=== PATIENT | female | born 1960 ===

== ENCOUNTER 2016-12-24 12:53 | Inpatient (IN) | payer OTHER ==
[2016-12-24] MEDS ORDERED: Sodium Chloride 0.9% 500 ML IV ONE ×2 (14:18→14:31)
[2016-12-24 14:38] LABS: BASO # 0.1 K/uL (0.0-0.2); BASO % 0.6 % (0.0-2.0); EOS % 0.2 % (0.0-4.0); HEMATOCRIT 18.6 % (34.0-47.0); LYMPH # 1.4 K/uL (1.0-4.3); LYMPH % 12.1 % (20.0-40.0); MEAN CELL VOLUME 83.8 fL (81.0-99.0); MEAN CORPUSCULAR HEMOGLOBIN 27.3 pg (27.0-31.0); MEAN CORPUSCULAR HGB CONC 32.5 g/dL (33.0-37.0); MEAN PLATELET VOLUME 8.1 fL (7.2-11.7); MONO # 1.2 K/uL (0.0-0.8); MONO % 10.2 % (0.0-10.0); NRBC % 0.1 % (0.0-2.0); RED CELL DISTRIBUTION WIDTH 14.6 % (11.5-14.5); WHITE BLOOD COUNT 11.3 K/uL (4.8-10.8)
--- NOTE | 2016-12-24 14:45 | C.PDOC ---
History Of Present Illness 56 y/o female, whose PMHx includes anemia, HTN, hyperlipidemia, presents to ED for evaluation of generalized weakness, and dizziness for the last 2 weeks. Pt complaints of dark black stool over the last 2 days. Notes occasional back pain. Otherwise, denies any nausea, vomiting, abdominal pain, urinary symptoms, incontinence, extremity weakness/numbness, chest pain, shortness of breath, fever, chills, or any other associated symptoms at this time. PMD: Dr. Wood Time Seen by Provider: 12/24/16 13:51 Chief Complaint (Nursing): GI Problem History Per: Patient History/Exam Limitations: no limitations Onset/Duration Of Symptoms: Days (2 weeks) Current Symptoms Are (Timing): Still Present Number Of Bleeding Episodes: Unknown Amount of Blood Loss: Small Quality Of Discomfort: "Pain" Associated Symptoms: Rectal Bleeding, Lightheadedness. denies: Nausea, Vomiting , Hematemesis Modifying Factors: None Recent travel outside of the [place]: No Additional History Per: Patient Past Medical History Reviewed: Historical Data, Nursing Documentation, Vital Signs Vital Signs: Last Vital Signs Temp 98.2 F 12/24/16 13:12 Pulse 98 H 12/24/16 13:12 Resp 18 12/24/16 13:12 BP 109/72 12/24/16 13:12 Pulse Ox 100 12/24/16 14:57 - Medical History PMH: Anemia, HTN, Hyperlipidemia Family History: States: No Known Family Hx - Social History Hx Alcohol Use: No Hx Substance Use: No - Immunization History Hx Tetanus Toxoid Vaccination: No Hx Influenza Vaccination: No Hx Pneumococcal Vaccination: No Review Of Systems Except As Marked, All Systems Reviewed And Found Negative. Constitutional: Negative for: Fever, Chills Cardiovascular: Negative for: Chest Pain, Palpitations, Edema Respiratory: Negative for: Cough, Shortness of Breath, Hemoptysis Gastrointestinal: Positive for: Melena (dark black stool), Hematochezia. Negative for: Nausea, Vomiting, Abdominal Pain, Diarrhea, Constipation, Hematemesis Genitourinary: Negative for: Dysuria, Frequency, Incontinence, Hematuria, Vaginal Discharge, Vaginal Bleeding Musculoskeletal: Positive for: Back Pain. Negative for: Neck Pain Skin: Negative for: Rash, Bruising Neurological: Positive for: Dizziness. Negative for: Weakness, Numbness, Headache Physical Exam - Physical Exam Appears: Non-toxic, No Acute Distress Skin: Normal Color, Warm, Dry, No Rash Head: Atraumatic, Normacephalic Eye(s): bilateral: PERRL, EOMI, Conjunctiva Pale Oral Mucosa: Moist Neck: Normal ROM, Supple Chest: Symmetrical Cardiovascular: Rhythm Regular, No Murmur Respiratory: No Accessory Muscle Use, No Rales, No Rhonchi, No Wheezing Gastrointestinal/Abdominal: Soft, No Tenderness Rectal: No Heme Negative (no gross blood), No Hemorrhoids, No Tenderness, Other (black stool, no fissures) Back: No CVA Tenderness, No Vertebral Tenderness, No Paraspinal Tenderness Extremity: Normal ROM, Pedal Edema (b/l), No Deformity Neurological/Psych: Oriented x3, Normal Speech, Normal Cognition ED Course And Treatment - Laboratory Results Result Diagrams: 12/24/16 14:30 12/24/16 14:30 ECG: Interpreted By Me, Viewed By Me ECG Rhythm: Sinus Rhythm ECG Interpretation: No Acute Changes Interpretation Of ECG: No ST/T wave elevation or depression. Rate From EC (bpm) O2 Sat by Pulse Oximetry: 100 (on RA) Pulse Ox Interpretation: Normal Medical Decision Making Medical Decision Making: Blood work, UA, EKG, CXR ordered and reviewed. Pt was given IV fluids. Disposition Discussed With Dr.: Eun Kothari Doctor Will See Patient In The: Hospital Counseled Patient/Family Regarding: Studies Performed, Diagnosis - Disposition Disposition Time: 15:01 Condition: GUARDED Forms: [facility] ([place]) - Clinical Impression Clinical Impression: Anemia, GI bleed - Scribe Statement The provider has reviewed the documentation as recorded by the Cici López All medical record entries made by the Feleciaibshashi were at my direction and personally dictated by me. I have reviewed the chart and agree that the record accurately reflects my personal performance of the history, physical exam, medical decision making, and the department course for this patient. I have also personally directed, reviewed, and agree with the discharge instructions and disposition. Decision To Admit - Pt Status Changed To: Hospital Disposition Of: Inpatient - Admit Certification Admit to Inpatient:: After my assessment, the patient will require hospitalization for at least two midnights. This is because of the severity of symptoms shown, intensity of services needed, and/or the medical risk in this patient being treated as an outpatient. - InPatient: Physician Admission Certification: I certify that this patient requires 2 or more midnights of care for the following reason:: GI bleed - . Bed Request Type: Telemetry Patient Diagnosis: Anemia, GI bleed
[2016-12-24 14:49] LABS: ALB/GLOB RATIO 1.3 (1.0-2.1); ALKALINE PHOSPHATASE 70 U/L (38-126); ALT/SGPT 36 U/L (9-52); AST/SGOT 41 U/L (14-36); BILIRUBIN,TOTAL 0.8 mg/dL (0.2-1.3); BLOOD UREA NITROGEN 15 mg/dL (7-17); CALCIUM 8.8 mg/dl (8.6-10.4); CARBON DIOXIDE 25 mmol/L (22-30); CHLORIDE 94 mmol/L (98-107); GFR AFRICAN-AMERICAN > 60; GLUCOSE,RANDOM 90 mg/dL (65-105); POTASSIUM 3.5 mmol/L (3.6-5.2); SODIUM 134 mmol/L (132-148); TOTAL PROTEIN 6.9 g/dL (6.3-8.3)
--- NOTE | 2016-12-24 15:33 | RAD ---
PROCEDURE: CHEST RADIOGRAPH, 1 VIEW HISTORY: GI Bleeding COMPARISON: None available. FINDINGS: LUNGS: Mild venous congestion. Patchy increased markings at both lung bases. Right hilar prominence. PLEURA: No pneumothorax or pleural fluid seen. CARDIOVASCULAR: Normal. OSSEOUS STRUCTURES: No significant abnormalities. VISUALIZED UPPER ABDOMEN: Normal. OTHER FINDINGS: Surgical clips in the right axilla. IMPRESSION: Mild venous congestion. Patchy increased markings at both lung bases. Right hilar prominence.
--- NOTE | 2016-12-24 16:13 | CP.PCM.CON ---
<Ej Mtz - Last Filed: 12/24/16 17:03> History of Present Illness - History of Present Illness History of Present Illness: PGY5 GI Fellow Consult Note Patient is a 56yo female with PMHx significant for breast cancer dx 15 years ago s/p lumpectomy, chemotherapy and XRT with subsequent oral SERM for 5 years and anemia who presented to the ED today with dizziness, fatigue and generalized malaise. Patient had complained of fatigue and was seen by her PCP in October of this year. Routine blood work at the beginning of October (10/14/16) revealed a normocytic anemia (HGB 12.5 with MCV 91) and repeat blood work at the end of October revealed worsening anemia (HGB 11.1 with MCV 90.6). With these findings, patient was started on PO iron supplementation. Two weeks ago she suddenly developed dizziness and has had progressive dyspnea and fatigue since. Symptoms became so severe that she has been unable to go to work for the past two days and decided to come to the ED for further evaluation. Initial lab work here reveals HGB of 6. Patient admits to mild intermittent LUQ abdominal pain and has had dark, formed stool since initiation of iron supplementation and thus did not suspect any rectal bleeding. Denies any corry bright red blood per rectum. She has not had any nausea, vomiting, weight loss, dysphagia, odynophagia. She has no family history of GI malignancy and has not had any prior endoscopic evaluations. PMHx: See HPI PSHx: Lumpectomy for breast cancer FHx: Discussed with patient and she denies any pertinent family history Social: Denies any tobacco, EtOH or illicit drug use Endo: No prior endoscopic evaluations Review of Systems - Constitutional Constitutional: Fatigue, Malaise. absent: Anorexia, Fever - EENT Eyes: absent: Change in Vision Nose/Mouth/Throat: absent: Sore Throat - Cardiovascular Cardiovascular: Dyspnea, Dyspnea on Exertion. absent: Chest Pain - Respiratory Respiratory: Dyspnea. absent: Cough, Excessive Mucous Production - Gastrointestinal Gastrointestinal: Abdominal Pain. absent: Bloating, Constipation, Cramping, Diarrhea, Dyspepsia, Dysphagia, Heartburn, Hematemesis, Hematochezia, Loose Stools, Melena, Nausea, Odynophagia, Vomiting - Genitourinary Genitourinary: absent: Dysuria, Urinary Frequency, Urinary Urgency - Musculoskeletal Musculoskeletal: absent: Back Pain, Neck Pain - Integumentary Integumentary: absent: New Lesions, Rash - Neurological Neurological: absent: Dizziness, Numbness, Focal Weakness - Psychiatric Psychiatric: absent: Anxiety, Depression - Endocrine Endocrine: absent: Polydipsia, Polyphagia, Polyuria - Hematologic/Lymphatic Hematologic: absent: Easy Bleeding, Easy Bruising, Lymphadenopathy Past Patient History - Past Social History Smoking Status: Never Smoked - CARDIAC Hx Hypertension: Yes - HEMATOLOGICAL/ONCOLOGICAL Hx Anemia: Yes - PSYCHIATRIC Hx Substance Use: No - SURGICAL HISTORY Other/Comment: Rt breast cyst removal - ANESTHESIA Hx Anesthesia: Yes Hx Anesthesia Reactions: No Meds Allergies/Adverse Reactions: Allergies Allergy/AdvReac Type Severity Reaction Status Date / Time No Known Allergies Allergy Verified 12/24/16 13:16 Physical Exam - Constitutional Appears: Non-toxic, No Acute Distress - Eye Exam Eye Exam: EOMI, PERRL - ENT Exam ENT Exam: Mucous Membranes Moist - Respiratory Exam Respiratory Exam: Clear to Auscultation Bilateral. absent: Rales, Rhonchi, Wheezes - Cardiovascular Exam Cardiovascular Exam: RRR, +S1, +S2 - GI/Abdominal Exam GI & Abdominal Exam: Normal Bowel Sounds, Soft. absent: Distended, Firm, Guarding, Organomegaly, Rigid, Tenderness - Rectal Exam Rectal Exam: absent: Black Stool, Bloody Stool, Hemorrhoids Additional comments: dark brown, formed stool in rectum; no bright red blood, no melena - Extremities Exam Extremities exam: Positive for: normal inspection. Negative for: pedal edema - Neurological Exam Neurological exam: Alert, Oriented x3 - Psychiatric Exam Psychiatric exam: Normal Affect, Normal Mood - Skin Skin Exam: Dry, Warm Results - Vital Signs Recent Vital Signs: Last Vital Signs Temp 98.2 F 12/24/16 13:12 Pulse 98 H 12/24/16 13:12 Resp 18 12/24/16 13:12 BP 109/72 12/24/16 13:12 Pulse Ox 100 12/24/16 15:02 - Labs Result Diagrams: 12/24/16 14:30 12/24/16 14:30 Assessment & Plan - Assessment and Plan (Free Text) Assessment: Patient is a 56yo female with PMHx significant for breast cancer dx 15 years ago s/p lumpectomy, chemotherapy and XRT with subsequent oral SERM for 5 years and anemia who presented to the ED today with dizziness, fatigue and generalized malaise. -Symptomatic normocytic anemia -Hypokalemia -H/O Breast cancer Plan: -HGB down 6g from 12.5 on 10/15/15 to today -Recommend PRBC transfusion as ordered by ER staff -Suspect anemia is more chronic in nature; no overt signs of acute GI hemorrhaging -Protonix 40mg PO QAMAC -Aggressive IVF resuscitation as is ordered -Liquid diet as tolerated -NPO past MN -If patient is adequately resuscitated, plan for EGD tomorrow -Patient will ultimately benefit from colonoscopy given her age and history of malignancy, however would defer this examination for now and will likely recommend as outpatient -Monitor CBC, BMP; check INR, TSH - Date & Time Date: 12/24/16 Time: 16:15 <Rich Lowry - Last Filed: 12/24/16 17:26> Meds - Medications Medications: Current Medications Pantoprazole Sodium (Protonix Ec Tab) 40 mg PO ACB ADRIEL Results - Vital Signs Recent Vital Signs: Last Vital Signs Temp 99.9 F H 12/24/16 17:19 Pulse 102 H 12/24/16 16:24 Resp 15 12/24/16 16:24 BP 115/64 12/24/16 16:24 Pulse Ox 93 L 12/24/16 16:24 - Labs Result Diagrams: 12/24/16 14:30 12/24/16 14:30 Labs: Laboratory Results - last 24 hr 12/24/16 15:10 Blood Type B POSITIVE Blood Type Confirm B POSITIVE Antibody Screen Negative Attending/Attestation - Attestation I have personally seen and examined this patient.: Yes I have fully participated in the care of the patient.: Yes I have reviewed all pertinent clinical information: Yes Notes (Text): 12/24/16 17:20 I have seen and examined patient with GI fellow. Agree with above documentation with the following additions. In brief, this is a 56 year old female with history of breast cancer s/p chemo and radiation therapy who presents to hospital with complaint of progressive fatigue and dizziness for the past two days. She has been following up as outpatient for the past few months for iron deficiency anemia, however recently she started developing symptoms mentioned above and came to hospital. She endorses extreme fatigue even with ambulation with short distance and mild LUQ non-radiating abdominal pain. She denies associated nausea, vomiting, diarrhea, fever/chills, weight loss, or change in bowel habits. She does report having maroon colored stool since beginning oral iron supplementation therapy. No prior endoscopic evaluation. Review of vitals from today shows tachycardia. History of breast cancer Symptomatic anemia Blood in stool - Clear liquid diet as tolerated - Transfuse 2 units PRBC and continue to monitor H/H - Begin oral PPI therapy - Obtain iron studies, TSH - Outpatient bloodwork from October reviewed by me showing Hb of 12, therefore significant change currently noted. Given clinical scenario, will plan for EGD evaluation to rule out peptic ulcer disease or underlying malignancy. She would also benefit from colonoscopy, however this can likely be performed electively as outpatient. NPO after midnight. Case discussed with Dr. Mccarthy.
--- NOTE | 2016-12-24 17:54 | CP.PCM.HP ---
History of Present Illness - History of Present Illness History of Present Illness: CC: Dizziness, blood in stool HPI: Ms Olson is a 56 yo F with pmhx of HTN, HLD and breast cancer in 2001, presenting to [facility] ED with the complaint of dizziness and blood in her stool. Patient states that the dizziness started about a week ago and is worse with walking and exertion. Patient states that she started having "dark" blood in her stool 2 days ago. Prior to this patient had dark stool because she was taking Ferritin, but this was a change to a dark red color in her stool. Patient also states that she had generalized abdominal discomfort last night but no pain. Patient admits fatigue with exertion, generalized weakness, blurry vision, increased urinary urgency, and easy bruising. Patient denies weight change, fever, chills, skin/hair/nail changes, headache, epistaxis, bleeding gums, chest pain, palpitations, wheeze, cough, hemoptysis, indigestion, dysphagia, nausea, vomiting, diarrhea, constipation, dysuria, or hematuria. As per Dr. Wood patient has had Hemoglobin of 11.3-12.5 in the past PMD: Dr. Wood PMH: HTN, HLD and breast cancer in 2001 SurgicalHX: Right breast cancer in 2001 - surgically removed along with radiation and chemotherapy. 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 No tobacco use. EtOH - Glass of wine approx. once a month. No illicit drug use. Home Medications: Losartan 100 mg PO qd, Ferritin 140 mg po qd, Atorvastatin 10 mg PO qd, Pantoprazole 40 mg PO qd Present on Admission - Present on Admission Any Indicators Present on Admission: No History of DVT/PE: No History of Uncontrolled Diabetes: No Urinary Catheter: No Decubitus Ulcer Present: No Review of Systems - Constitutional Constitutional: Fatigue, Lethargy, Weakness. absent: Anorexia, Chills, Weight Loss - EENT Eyes: Blurred Vision. absent: Blind Spots Ears: Dizziness Nose/Mouth/Throat: absent: Nasal Congestion, Sore Throat - Cardiovascular Cardiovascular: Rapid Heart Rate. absent: Chest Pain at Rest, Claudication, Dyspnea on Exertion, Edema, Irregular Heart Rhythm, Palpitations, Pedal Edema - Respiratory Respiratory: absent: Cough, Dyspnea, Hemoptysis, Wheezing, Stridor - Gastrointestinal Gastrointestinal: Change in Stool Character. absent: Constipation, Diarrhea, Nausea, Vomiting - Genitourinary Genitourinary: Urinary Frequency. absent: Hematuria - Reproductive: Female Reproductive:Female: Post Menopausal (menopause at 52 ) - Musculoskeletal Musculoskeletal: Muscle Weakness. absent: Joint Swelling, Stiffness, Tingling - Integumentary Integumentary: absent: Changing Lesions, Rash - Neurological Neurological: Dizziness. absent: Numbness - Hematologic/Lymphatic Hematologic: Easy Bruising. absent: Easy Bleeding Past Patient History - Past Social History Smoking Status: Never Smoked - CARDIAC Hx Hypertension: Yes - HEMATOLOGICAL/ONCOLOGICAL Hx Anemia: Yes - PSYCHIATRIC Hx Substance Use: No - SURGICAL HISTORY Other/Comment: Rt breast cyst removal - ANESTHESIA Hx Anesthesia: Yes Hx Anesthesia Reactions: No Meds Allergies/Adverse Reactions: Allergies Allergy/AdvReac Type Severity Reaction Status Date / Time No Known Allergies Allergy Verified 12/24/16 13:16 Physical Exam - Constitutional Appears: Non-toxic, No Acute Distress - Head Exam Head Exam: ATRAUMATIC, NORMAL INSPECTION, NORMOCEPHALIC - Eye Exam Eye Exam: EOMI, Normal appearance Additional comments: scleral pallor - ENT Exam ENT Exam: Mucous Membranes Moist - Neck Exam Neck exam: Positive for: Full Rom. Negative for: Lymphadenopathy, Tenderness - Respiratory Exam Respiratory Exam: Clear to Auscultation Bilateral, NORMAL BREATHING PATTERN. absent: Respiratory Distress - Cardiovascular Exam Cardiovascular Exam: Tachycardia, REGULAR RHYTHM. absent: Gallop, Rubs, Systolic Murmur - GI/Abdominal Exam GI & Abdominal Exam: Normal Bowel Sounds, Soft. absent: Distended, Firm, Guarding - Extremities Exam Extremities exam: Positive for: full ROM, normal inspection. Negative for: pedal edema - Neurological Exam Neurological exam: Alert, Oriented x3 - Psychiatric Exam Psychiatric exam: Normal Affect, Normal Mood - Skin Skin Exam: Intact, Pallor, Warm Results - Vital Signs Recent Vital Signs: Last Vital Signs Temp 99.9 F H 12/24/16 17:19 Pulse 107 H 12/24/16 17:10 Resp 18 12/24/16 17:10 BP 125/63 12/24/16 17:10 Pulse Ox 96 12/24/16 17:10 - Labs Result Diagrams: 12/24/16 14:30 12/24/16 14:30 Labs: Laboratory Results - last 24 hr 12/24/16 15:10 Blood Type B POSITIVE Blood Type Confirm B POSITIVE Antibody Screen Negative Assessment & Plan - Assessment and Plan (Free Text) Assessment: 1. Anemia secondary to possible upper GI bleed transfuse 2 u PRBCs CBC q6h x 24hr Protonix 40 mg po ACB GI consulted, Dr. Lowry, help appreciated Endoscopy tomorrow morning Clear liquid diet NPO after midnight EKG: NSR, no acute changes Cxray: mild venous congestion. patchy increasing marking at both lung bases. right hilar prominence. 2. Dizziness secondary to anemia transfuse 2 PRBCs monitor 3. Hypokalemia K+: 3.5 in ED KDur 20 meq given 3. HTN hold home medication Losartan 100 mg po qd 4. HLD hold home medication Atorvastatin 10 mg po qd until patient has a diet 5. Prophylactic Measures Protonix 40 mg po ACB SCDs
[2016-12-24] MEDS ORDERED: Potassium Chloride 20 mEq ER Tab PO ONE ×2 (18:15→18:40)
[2016-12-25] MEDS: Pantoprazole 40 mg EC Tab PO SCH ×2 (07:08→10:59)
[2016-12-25 08:12] LABS: INR 1.1
[2016-12-25 08:23] LABS: CHLORIDE 101 mmol/L (98-107)
[2016-12-25 08:24] LABS: SODIUM 136 mmol/L (132-148)
[2016-12-25 08:26] LABS: ALB/GLOB RATIO 1.3 (1.0-2.1); ALKALINE PHOSPHATASE 69 U/L (38-126); AST/SGOT 39 U/L (14-36); BILIRUBIN,TOTAL 1.1 mg/dL (0.2-1.3); CARBON DIOXIDE 26 mmol/L (22-30); GFR AFRICAN-AMERICAN > 60; TOTAL PROTEIN 6.8 g/dL (6.3-8.3)
[2016-12-25 08:27] LABS: ALT/SGPT 31 U/L (9-52); CALCIUM 8.4 mg/dl (8.6-10.4); GLUCOSE,RANDOM 87 mg/dL (65-105); PHOSPHOROUS 3.4 mg/dL (2.5-4.5)
[2016-12-25 08:29] LABS: BASO % 0.5 % (0.0-2.0); EOS % 0.4 % (0.0-4.0); HEMATOCRIT 25.1 % (34.0-47.0); LYMPH % 11.9 % (20.0-40.0); MEAN CORPUSCULAR HEMOGLOBIN 27.7 pg (27.0-31.0); MEAN CORPUSCULAR HGB CONC 33.7 g/dL (33.0-37.0); MEAN PLATELET VOLUME 8.3 fL (7.2-11.7); MONO # 0.9 K/uL (0.0-0.8); MONO % 11.3 % (0.0-10.0); RED CELL DISTRIBUTION WIDTH 16.2 % (11.5-14.5); WHITE BLOOD COUNT 8.2 K/uL (4.8-10.8)
[2016-12-25] MEDS ORDERED: Propofol 10 mg/ml Inj (20 ML) ONE ×2 (08:44→08:55)
[2016-12-25] MEDS ORDERED: Simethicone 40 mg/0.6 ml Liquid (30 ml) ONE (08:52)
[2016-12-25 08:57] LABS: BLOOD UREA NITROGEN 10 mg/dL (7-17)
[2016-12-25] MEDS ORDERED: Potassium Chloride 20 mEq ER Tab PO SCH (10:00)
[2016-12-25] MEDS ORDERED: Iohexol 240 (50 ml) PO ONE (10:30)
[2016-12-25 16:08] LABS: HEMATOCRIT 26.2 % (34.0-47.0); MEAN CORPUSCULAR HEMOGLOBIN 27.1 pg (27.0-31.0); MEAN CORPUSCULAR HGB CONC 33.1 g/dL (33.0-37.0); RED CELL DISTRIBUTION WIDTH 16.1 % (11.5-14.5)
[2016-12-25 16:19] VITALS: RESP 20
[2016-12-25] MEDS ORDERED: Iohexol 350mg/ml 100 ML ONE (16:23)
--- NOTE | 2016-12-25 18:41 | CT ---
PROCEDURE: CT Chest, Abdomen and Pelvis with intravenous contrast HISTORY: Malignancy suspected. COMPARISON: None. TECHNIQUE: IV dose administered: 100 cc Visipaque 320. Radiation dose: Total exam DLP = mGy-cm. This CT exam was performed using one or more of the following dose reduction techniques: Automated exposure control, adjustment of the mA and/or kV according to patient size, and/or use of iterative reconstruction technique. FINDINGS: CT CHEST WITH CONTRAST: LUNGS: Clear. No nodule, mass or consolidation. MEDIASTINUM: Unremarkable. Normal caliber aorta and pulmonary arterial trunk. No aortic dissection. Normal size heart. LYMPH NODES: Unremarkable. PLEURA: Unremarkable. No pneumothorax. No pleural fluid. BONES: Unremarkable. OTHER FINDINGS: Small scalene and supraclavicular lymph nodes the preponderance of which are less than 1 cm. Surgical clips in the right axilla. No appreciable axillary adenopathy. CT ABDOMEN AND PELVIS: LIVER: Unremarkable. No gross lesion or ductal dilatation. GALLBLADDER AND BILE DUCTS: Unremarkable. 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 Tumor appears to in follow up the splenic artery and splenic vein. Reconstitution of the splenic vein and the splenic hilus identified. SPLEEN: Unremarkable. ADRENALS: Unremarkable. No mass. KIDNEYS AND URETERS: Unremarkable. No hydronephrosis. No solid mass. VASCULATURE: Unremarkable. No aortic aneurysm. BOWEL: Bulky gastric tumor involving a large portions of the body and cardia. The largest tumor mass although diffuse and infiltrative measures 5.7 x 9.6 cm. Multiple left upper quadrant tumor masses identified with the largest in the lesser sac measures 2 x 3.2 cm. Additional tumor masses can be seen along the greater curve. Necrotic tumor masses adjacent to the pancreas and interposed between the stomach and spleen measured 2.2 x 3.4 cm. Incidental finding(s): Diverticulosis without an acute inflammatory component or other associated pathologic process. APPENDIX: Normal appendix. PERITONEUM: Unremarkable. No free fluid. No free air. LYMPH NODES: Retroperitoneal, primarily periaortic lymphadenopathy extends from the level of the left adrenal gland to the periaortic lymph nodes adjacent to the left kidney. The largest rafiq mass 1.8 cm. BLADDER: Unremarkable. REPRODUCTIVE: Unremarkable. BONES: No acute fracture. OTHER FINDINGS: None. IMPRESSION: 1. Bulky gastric tumor described in greater detail above. In addition to regional adenopathy, a there is direct invasion or metastatic disease circumferentially involving portions of the pancreas. Splenic artery and splenic vein are affected. 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 2. Small supraclavicular lymph nodes likely incidental and unrelated finding. There is no measurable tumor in the thorax.
--- NOTE | 2016-12-25 23:19 | CP.PCM.PN ---
<KiritOlive - Last Filed: 12/25/16 23:14> Subjective - Date & Time of Evaluation Date of Evaluation: 12/25/16 Time of Evaluation: 23:15 - Subjective Subjective: Patient seen and examined after EGD. Patient had already had conversation with GI doctor about probable gastric cancer. Patient doing well at this time. Patient admits to history of breast cancer and lumpectomy in the right breast but has never had genetic testing done for cancer syndromes. Patient denies fever, chills, headache, nausea, vomiting, abdominal pain, dysuria, frequency, and hematuria. Objective - Vital Signs/Intake and Output Vital Signs (last 24 hours): Temp Pulse Resp BP Pulse Ox 98.1 F 91 H 20 128/85 95 12/25/16 15:00 12/25/16 15:00 12/25/16 15:00 12/25/16 15:00 12/25/16 15:00 Intake and Output: 12/25/16 12/26/16 18:59 06:59 Intake Total 700 Balance 700 - Medications Medications: Current Medications Pantoprazole Sodium (Protonix Ec Tab) 40 mg PO ACB [facility] Last Admin: 12/25/16 10:59 Dose: 40 mg Pneumococcal Polyvalent Vaccine (Pneumovax 23 Vaccine) 0.5 ml IM .ONCE ONE Stop: 12/26/16 10:01 - Labs Labs: 12/25/16 16:06 12/25/16 07:56 PT 12.3 SECONDS (9.7-12.2) H 12/25/16 07:56 INR 1.1 12/25/16 07:56 - Constitutional Appears: Non-toxic, No Acute Distress - Head Exam Head Exam: NORMAL INSPECTION - Eye Exam Eye Exam: EOMI - ENT Exam ENT Exam: Mucous Membranes Moist - Respiratory Exam Respiratory Exam: Clear to Ausculation Bilateral, NORMAL BREATHING PATTERN - Cardiovascular Exam Cardiovascular Exam: REGULAR RHYTHM, +S1, +S2 - GI/Abdominal Exam GI & Abdominal Exam: Soft, Normal Bowel Sounds. absent: Tenderness, Mass - Extremities Exam Extremities Exam: Normal Inspection - Neurological Exam Neurological Exam: Alert, Awake - Psychiatric Exam Psychiatric exam: Normal Affect, Normal Mood - Skin Skin Exam: Dry, Intact, Normal Color, Warm Assessment and Plan - Assessment and Plan (Free Text) Assessment: 1. Anemia Dr Lowry - EGD today showed probably secondary to upper GI mass Hemoglobin up to 8.5 after transfusion of 2 units Protonix 40 mg po ACB EKG: NSR, no acute changes Cxray: mild venous congestion. patchy increasing marking at both lung bases. right hilar prominence. Monitor H&H F/U abdominal CT and plan for d/c tomorrow 2. Dizziness secondary to anemia transfused 2 PRBCs - resolved 3. Hypokalemia K+: 3.5 in ED KDur 20 meq given - K was 4.0 today (12/25) 3. HTN hold home medication Losartan 100 mg po qd 4. HLD hold home medication Atorvastatin 10 mg po qd until patient has a diet 5. Prophylactic Measures Protonix 40 mg po ACB SCDs <Eun Kothari V - Last Filed: 12/26/16 15:57> Objective - Vital Signs/Intake and Output Vital Signs (last 24 hours): Temp Pulse Resp BP Pulse Ox 98.3 F 91 H 20 122/84 96 12/26/16 07:30 12/26/16 07:30 12/26/16 07:30 12/26/16 07:30 12/26/16 07:30 Intake and Output: 12/26/16 12/26/16 06:59 18:59 Intake Total 350 Balance 350 - Labs Labs: 12/26/16 07:09 12/25/16 07:56 PT 12.3 SECONDS (9.7-12.2) H 12/25/16 07:56 INR 1.1 12/25/16 07:56 Attending/Attestation - Attestation I have personally seen and examined this patient.: Yes I have fully participated in the care of the patient.: Yes I have reviewed all pertinent clinical information, including history, physical exam and plan: Yes Notes (Text): This is late computer entry for 12/25/16. Patient seen, examined, and case discussed with day-time resident. Patient completed EGD this morning. Patient seen with family at bedside. Briefly discussed findings with the patient. GI and hematology-onc have visited the patient. Patient is awaiting CT scan per GI, discussed with nursing staff, awaiting to complete Hematology-oncology consult-->seen patient, recommended for outpatient PET scan and follow-up Discussed with patient's PMD, Dr Wood regarding EGD and findings. Assessment/Plan 1) Gastric Tumor * GI (Dr. Lowry) on board-->help appreciated * Hematology-oncology (Dr. Bipin Limon) on board-->help appreciated * Came and saw the patient in light of EGD findings-->recommended for outpatient PET scan and follow-up * EGD (12/25/16): Malignant appearing gastric tumor on the anterior wall of the stomach and on the lesser curvature of the stomach-->biopsied * Perform an upper endoscopic ultrasound appointment to be scheduled. CT scan abdomen w contrast * f/u pathology * Protonix 40mg PO BID * Discussed with patient's primary, Dr Wood regarding EGD findings and oncology referral; discussed with patient s/p EGD * Patient at the time of my rounds is awaiting CT scan as ordered by GI 2. Symptomatic anemia Black Stools * Patient transfused 2 units of PRBC overnight * GI (Dr. Lowry) on board-->help appreciated * EGD (12/25/16): Malignant appearing gastric tumor on the anterior wall of the stomach and on the lesser curvature of the stomach-->biopsied * Perform an upper endoscopic ultrasound appointment to be scheduled. CT scan abdomen w contrast * f/u pathology * Hemoglobin improved to 8.5 from 6.0; monitor H/H * +occult blood 3. Hypokalemia * K+: 3.5 in ED on admission-->repleted * monitor BMP and Mg2+ and replete if necessary 4. Hypertension * Will resume home medication Losartan 100 mg po qdaily after EGD 5. Hyperlipidemia * Will resume home medication Atorvastatin 10 mg po qHS 6. Prophylactic Measures * Protonix 40 mg PO BID for GI ppx * Chemical anticoagulation held in light of symptomatic anemia * SCDs b/l
--- NOTE | 2016-12-26 06:36 | CP.PCM.PN ---
<LópezRaven wiggins - Last Filed: 12/26/16 09:47> Subjective - Date & Time of Evaluation Date of Evaluation: 12/26/16 Time of Evaluation: 06:00 - Subjective Subjective: PGY4 GI Follow-up Pt seen and examined bedside Pt still has some epigastric discomrt Denies any sig abd pain +BM , + flautus tolerating diet ROS: 10 point ROS conducted, neg other than above Objective - Vital Signs/Intake and Output Vital Signs (last 24 hours): Temp Pulse Resp BP Pulse Ox 98.7 F 76 20 102/67 98 12/26/16 04:40 12/26/16 04:40 12/26/16 04:40 12/26/16 04:40 12/26/16 04:40 Intake and Output: 12/25/16 12/26/16 18:59 06:59 Intake Total 700 350 Balance 700 350 - Medications Medications: Current Medications Pantoprazole Sodium (Protonix Ec Tab) 40 mg PO ACB [facility] Last Admin: 12/25/16 10:59 Dose: 40 mg Pneumococcal Polyvalent Vaccine (Pneumovax 23 Vaccine) 0.5 ml IM .ONCE ONE Stop: 12/26/16 10:01 - Labs Labs: 12/25/16 16:06 12/25/16 07:56 PT 12.3 SECONDS (9.7-12.2) H 12/25/16 07:56 INR 1.1 12/25/16 07:56 - Constitutional Appears: Non-toxic, No Acute Distress - Head Exam Head Exam: ATRAUMATIC, NORMOCEPHALIC - ENT Exam ENT Exam: Mucous Membranes Moist, Normal Exam - Respiratory Exam Respiratory Exam: Clear to Ausculation Bilateral, NORMAL BREATHING PATTERN. absent: Rales, Rhonchi, Wheezes - Cardiovascular Exam Cardiovascular Exam: REGULAR RHYTHM, +S1, +S2 - GI/Abdominal Exam GI & Abdominal Exam: Soft, Normal Bowel Sounds. absent: Guarding, Rigid, Tenderness - Extremities Exam Extremities Exam: absent: Joint Swelling, Pedal Edema - Neurological Exam Neurological Exam: Alert, Awake, Oriented x3 - Psychiatric Exam Psychiatric exam: Normal Affect, Normal Mood - Skin Skin Exam: Dry, Intact, Normal Color, Warm Assessment and Plan - Assessment and Plan (Free Text) Assessment: Patient is a 56yo female with PMHx significant for breast cancer dx 15 years ago s/p lumpectomy, chemotherapy and XRT with subsequent oral SERM for 5 years and anemia who presented to the ED today with dizziness, fatigue and generalized malaise. Pt found to have a fungating gastric mass on EGD. CT abd/ Pelv reveals regional and distal invasion into pancreas, splenic artery and vein with adenopathy, and pelvic mass? -Gastric Tumor, Path pending though likely malignant based on presentation -symptomatic anemia, hgb stable after 2 unit transfusion -Hypokalemia -H/O Breast cancer Plan: -HGB stab;e -Recommend PRBC transfusion to keep hgb > 7 -CT abd/pelv reviewed -Hem/onc consulted - Continue Protonix 40mg PO QAMAC -advance diet as tolerated -path pending -Patient will ultimately benefit from colonoscopy given her age and history of malignancy, however would defer this examination for now and will likely recommend as outpatient -Monitor CBC, BMP; check INR, TSH will d/w Dr. Venegas <Joshua Venegas - Last Filed: 12/26/16 11:50> Objective - Vital Signs/Intake and Output Vital Signs (last 24 hours): Temp Pulse Resp BP Pulse Ox 98.3 F 91 H 20 122/84 96 12/26/16 07:30 12/26/16 07:30 12/26/16 07:30 12/26/16 07:30 12/26/16 07:30 Intake and Output: 12/26/16 12/26/16 06:59 18:59 Intake Total 350 Balance 350 - Medications Medications: Current Medications Pantoprazole Sodium (Protonix Ec Tab) 40 mg PO ACB [facility] Last Admin: 12/26/16 07:56 Dose: 40 mg - Labs Labs: 12/26/16 07:09 12/25/16 07:56 PT 12.3 SECONDS (9.7-12.2) H 12/25/16 07:56 INR 1.1 12/25/16 07:56 Attending/Attestation - Attestation I have personally seen and examined this patient.: Yes I have fully participated in the care of the patient.: Yes I have reviewed all pertinent clinical information, including history, physical exam and plan: Yes Notes (Text): 12/26/16 11:48 56 year old female with h/o Breast cancer in the past admitted with anemia found to have gastric tumor. 1. Gastric tumor Plan: -s/p EGD with biopsies yesterday, path pending -CT shows evidence of locally advanced disease at least -currently she is stable for discharge -ok for discharge from gi perspective -continue ppi -outpatient oncology/surgery evaluation
[2016-12-26 07:24] LABS: BASO % 0.3 % (0.0-2.0); EOS % 0.5 % (0.0-4.0); HEMATOCRIT 24.6 % (34.0-47.0); LYMPH # 0.9 K/uL (1.0-4.3); LYMPH % 15.7 % (20.0-40.0); MEAN CELL VOLUME 81.8 fL (81.0-99.0); MEAN CORPUSCULAR HEMOGLOBIN 27.5 pg (27.0-31.0); MEAN CORPUSCULAR HGB CONC 33.6 g/dL (33.0-37.0); MONO # 0.6 K/uL (0.0-0.8); MONO % 10.8 % (0.0-10.0); NRBC % 0.1 % (0.0-2.0); RED CELL DISTRIBUTION WIDTH 15.4 % (11.5-14.5); WHITE BLOOD COUNT 5.8 K/uL (4.8-10.8)
[2016-12-26] MEDS: Pantoprazole 40 mg EC Tab PO SCH (07:56)
[2016-12-26 08:48] VITALS: BP 122/84; PULSE 91; TEMP 98.3; O2SAT 96
[2016-12-26] MEDS ORDERED: Pneumococcal 23-Valent Vaccine IM ONE (10:00)
--- NOTE | 2016-12-26 14:51 | CP.PCM.DIS ---
<Bart Mehta - Last Filed: 12/26/16 15:07> Provider - Provider Date of Admission: 12/24/16 15:02 Attending physician: Eun Kothari DO Consults: GI: Dr. Venegas Time Spent in preparation of Discharge (in minutes): 45 Hospital Course - Lab Results Lab Results: Most Recent Lab Values WBC 5.8 K/uL (4.8-10.8) 12/26/16 07:09 RBC 3.01 Mil/uL (3.80-5.20) L 12/26/16 07:09 Hgb 8.3 g/dL (11.0-16.0) L 12/26/16 07:09 Hct 24.6 % (34.0-47.0) L 12/26/16 07:09 MCV 81.8 fL (81.0-99.0) 12/26/16 07:09 MCH 27.5 pg (27.0-31.0) 12/26/16 07:09 MCHC 33.6 g/dL (33.0-37.0) 12/26/16 07:09 RDW 15.4 % (11.5-14.5) H 12/26/16 07:09 Plt Count 346 K/uL (130-400) 12/26/16 07:09 MPV 8.0 fL (7.2-11.7) 12/26/16 07:09 Neut % (Auto) 72.7 % (50.0-75.0) 12/26/16 07:09 Lymph % (Auto) 15.7 % (20.0-40.0) L 12/26/16 07:09 Gove % (Auto) 10.8 % (0.0-10.0) H 12/26/16 07:09 Eos % (Auto) 0.5 % (0.0-4.0) 12/26/16 07:09 Baso % (Auto) 0.3 % (0.0-2.0) 12/26/16 07:09 Neut # 4.2 K/uL (1.8-7.0) 12/26/16 07:09 Lymph # 0.9 K/uL (1.0-4.3) L 12/26/16 07:09 Gove # 0.6 K/uL (0.0-0.8) 12/26/16 07:09 Eos # 0.0 K/uL (0.0-0.7) 12/26/16 07:09 Baso # 0.0 K/uL (0.0-0.2) 12/26/16 07:09 PT 12.3 SECONDS (9.7-12.2) H 12/25/16 07:56 INR 1.1 12/25/16 07:56 Sodium 136 mmol/L (132-148) 12/25/16 07:56 Potassium 4.0 mmol/L (3.6-5.2) 12/25/16 07:56 Chloride 101 mmol/L (98-107) 12/25/16 07:56 Carbon Dioxide 26 mmol/L (22-30) 12/25/16 07:56 Anion Gap 13 (10-20) 12/25/16 07:56 BUN 10 mg/dL (7-17) 12/25/16 07:56 Creatinine 0.7 MG/DL (0.7-1.2) 12/25/16 07:56 Est GFR ( Amer) > 60 12/25/16 07:56 Est GFR (Non-Af Amer) > 60 12/25/16 07:56 Random Glucose 87 mg/dL (65-105) 12/25/16 07:56 Calcium 8.4 mg/dl (8.6-10.4) L 12/25/16 07:56 Phosphorus 3.4 mg/dL (2.5-4.5) 12/25/16 07:56 Magnesium 2.0 mg/dL (1.6-2.3) 12/25/16 07:56 Total Bilirubin 1.1 mg/dL (0.2-1.3) 12/25/16 07:56 AST 39 U/L (14-36) H 12/25/16 07:56 ALT 31 U/L (9-52) 12/25/16 07:56 Alkaline Phosphatase 69 U/L (38-126) 12/25/16 07:56 Total Protein 6.8 g/dL (6.3-8.3) 12/25/16 07:56 Albumin 3.8 g/dL (3.5-5.0) 12/25/16 07:56 Globulin 3.0 gm/dL (2.2-3.9) 12/25/16 07:56 Albumin/Globulin Ratio 1.3 (1.0-2.1) 12/25/16 07:56 Stool Occult Blood Positive (NEGATIVE) H 12/24/16 14:30 Blood Type B POSITIVE 12/24/16 15:10 Blood Type Confirm B POSITIVE 12/24/16 15:10 Antibody Screen Negative 12/24/16 15:10 - Hospital Course Hospital Course: Attending: Dr. Kothari Consults: GI: Rubi Stable for discharge Discharge home Procedures- endoscopy No complications Discharge diagnoses 1. Fungating gastric mass 2. Anemia 3. Hypokalemia 4. Breast cancer 5. HTN 6. HLD Hospital course 1. Anemia Dr Lowry - EGD today showed probably secondary to upper GI mass pt has fungating gastric mass with invasion adjacent structures H/H stable day of discharge Protonix 40 mg po ACB EKG: NSR, no acute changes Cxray: mild venous congestion. patchy increasing marking at both lung bases. right hilar prominence. pt needs outpatient pet scan 2. Dizziness secondary to anemia transfused 2 PRBCs - resolved 3. Hypokalemia K+: 3.5 in ED KDur 20 meq given resolved 3. HTN hold home medication Losartan 100 mg po qd 4. HLD hold home medication Atorvastatin 10 mg po qd until patient has a diet 5. Prophylactic Measures Protonix 40 mg po ACB SCDs Discharge instructions 1. patient will need outpatient pet scan 2. pt will need follow up with Dr. Venegas 3. patient will need follow up about path results 4. pt needs to follow up with primary Dr. Wood Discharge medications 1. lipitor 10 mg po hs 2. ferrous sulfate daily 3. losartan/hctz daily 4. protonix 40 bid - Date & Time of H&P Date of H&P: 12/24/16 Time of H&P: 17:47 Discharge Exam - Head Exam Head Exam: ATRAUMATIC, NORMOCEPHALIC - Eye Exam Eye Exam: EOMI - ENT Exam ENT Exam: Mucous Membranes Moist - Neck Exam Neck exam: Full Rom, Normal Inspection - Respiratory Exam Respiratory Exam: NORMAL BREATHING PATTERN, UNREMARKABLE - Cardiovascular Exam Cardiovascular Exam: +S1, +S2 - GI/Abdominal Exam GI & Abdominal Exam: Normal Bowel Sounds, Tenderness - Extremities Exam Extremities exam: full ROM, normal inspection - Neurological Exam Neurological exam: Alert, CN II-XII Intact, Oriented x3 - Psychiatric Exam Psychiatric exam: Normal Affect, Normal Mood - Skin Skin Exam: Dry, Intact, Normal Color, Warm Discharge Plan - Discharge Medications Prescriptions: RX: Pantoprazole [Protonix EC Tab] 40 mg PO BID #60 ect - Follow Up Plan Condition: STABLE Disposition: HOME/ ROUTINE Instructions: Pantoprazole (By mouth), Stomach Cancer (DC), Anemia (DC), Gastric Polyps (DC) Referrals: Joshua Venegas MD [Staff Provider] - Derrick Wood MD [Staff Provider] - Charley Limon MD [Staff Provider] - <Eun Kothari V - Last Filed: 12/26/16 16:08> Provider - Provider Date of Admission: 12/24/16 15:02 Attending physician: Eun Kothari, [facility] Course - Lab Results Lab Results: Most Recent Lab Values WBC 5.8 K/uL (4.8-10.8) 12/26/16 07:09 RBC 3.01 Mil/uL (3.80-5.20) L 12/26/16 07:09 Hgb 8.3 g/dL (11.0-16.0) L 12/26/16 07:09 Hct 24.6 % (34.0-47.0) L 12/26/16 07:09 MCV 81.8 fL (81.0-99.0) 12/26/16 07:09 MCH 27.5 pg (27.0-31.0) 12/26/16 07:09 MCHC 33.6 g/dL (33.0-37.0) 12/26/16 07:09 RDW 15.4 % (11.5-14.5) H 12/26/16 07:09 Plt Count 346 K/uL (130-400) 12/26/16 07:09 MPV 8.0 fL (7.2-11.7) 12/26/16 07:09 Neut % (Auto) 72.7 % (50.0-75.0) 12/26/16 07:09 Lymph % (Auto) 15.7 % (20.0-40.0) L 12/26/16 07:09 Gove % (Auto) 10.8 % (0.0-10.0) H 12/26/16 07:09 Eos % (Auto) 0.5 % (0.0-4.0) 12/26/16 07:09 Baso % (Auto) 0.3 % (0.0-2.0) 12/26/16 07:09 Neut # 4.2 K/uL (1.8-7.0) 12/26/16 07:09 Lymph # 0.9 K/uL (1.0-4.3) L 12/26/16 07:09 Gove # 0.6 K/uL (0.0-0.8) 12/26/16 07:09 Eos # 0.0 K/uL (0.0-0.7) 12/26/16 07:09 Baso # 0.0 K/uL (0.0-0.2) 12/26/16 07:09 PT 12.3 SECONDS (9.7-12.2) H 12/25/16 07:56 INR 1.1 12/25/16 07:56 Sodium 136 mmol/L (132-148) 12/25/16 07:56 Potassium 4.0 mmol/L (3.6-5.2) 12/25/16 07:56 Chloride 101 mmol/L (98-107) 12/25/16 07:56 Carbon Dioxide 26 mmol/L (22-30) 12/25/16 07:56 Anion Gap 13 (10-20) 12/25/16 07:56 BUN 10 mg/dL (7-17) 12/25/16 07:56 Creatinine 0.7 MG/DL (0.7-1.2) 12/25/16 07:56 Est GFR ( Amer) > 60 12/25/16 07:56 Est GFR (Non-Af Amer) > 60 12/25/16 07:56 Random Glucose 87 mg/dL (65-105) 12/25/16 07:56 Calcium 8.4 mg/dl (8.6-10.4) L 12/25/16 07:56 Phosphorus 3.4 mg/dL (2.5-4.5) 12/25/16 07:56 Magnesium 2.0 mg/dL (1.6-2.3) 12/25/16 07:56 Total Bilirubin 1.1 mg/dL (0.2-1.3) 12/25/16 07:56 AST 39 U/L (14-36) H 12/25/16 07:56 ALT 31 U/L (9-52) 12/25/16 07:56 Alkaline Phosphatase 69 U/L (38-126) 12/25/16 07:56 Total Protein 6.8 g/dL (6.3-8.3) 12/25/16 07:56 Albumin 3.8 g/dL (3.5-5.0) 12/25/16 07:56 Globulin 3.0 gm/dL (2.2-3.9) 12/25/16 07:56 Albumin/Globulin Ratio 1.3 (1.0-2.1) 12/25/16 07:56 Stool Occult Blood Positive (NEGATIVE) H 12/24/16 14:30 Blood Type B POSITIVE 12/24/16 15:10 Blood Type Confirm B POSITIVE 12/24/16 15:10 Antibody Screen Negative 12/24/16 15:10 Attending/Attestation - Attestation I have personally seen and examined this patient.: Yes I have fully participated in the care of the patient.: Yes I have reviewed all pertinent clinical information, including history, physical exam and plan: Yes Notes (Text): Patient seen, examined, and case discussed with day-time resident. patient seen at bedside with family. Patient reports she is feeling ok since post EGD. Patient reports she was seen by GI today and reports they discussed the CT scan findings with her. Patient wants to follow-up with [facility]. Patient has contacted two doctors at [facility] for further management regarding her newly diagnosed gastric tumor. Patient requests copies of EGD, Labwork, and CT scan which she completed in the hospital to bring to [place], since medical records is closed. Patient and family aware pathology is not available yet from the EGD. Patient's hemoglobin 8.3 s/p EGD POD 1. Per GI, patient is stable from their perspective. Discussed with patient's primary care doctor, Dr Derrick Wood, who is aware, patient to go upon discharge to [place] for further workup regarding gastric tumor found on EGD yesterday. Discussed with patient that her hemoglobin improved to 8.3 and she is aware of signs of anemia including lightheadness, dizziness, pallor in case she needs further blood transfusion. Patient discharge to resume home medications and given two prescriptions: Protonix 40mg PO BID and Iron supplements. Discussed discharge order and discharge plan with resident, patient, and patient 's primary care doctor. Patient plans for further management at [place]; has made arrangements to see the doctors tonight. This is a summary of patient's hospitalization. Please see EMR for further details. Assessment/Plan 1) Gastric Tumor * GI (Dr. Lowry) on board-->help appreciated * Hematology-oncology (Dr. Charley Limon) on board-->help appreciated * Came and saw the patient in light of EGD findings-->recommended for outpatient PET scan and follow-up * EGD (12/25/16): Malignant appearing gastric tumor on the anterior wall of the stomach and on the lesser curvature of the stomach-->biopsied * Perform an upper endoscopic ultrasound appointment to be scheduled. CT scan abdomen w contrast * f/u pathology * Protonix 40mg PO BID * Discussed with patient's primary, Dr Wood regarding EGD findings and oncology referral; discussed with patient s/p EGD * GI spoken with patient in regards to CT scan findings this morning; awaiting pathology * CT Chest/Abdomen/Pelvis (12/25/16): bulky gastric tumor described in greater detail above. In addition to regional adenopathy, there is direct invasion or metastatic circumferentially involving portions of the pancreas. Splenic artery and splenic vein are affected. Pelvic neoplasma identified in the pelvis on allilac, hypogastric chains on the right. Small supraclavicular lymph nodes likely incidental and unrelated. 2. Symptomatic anemia Black Stools * Patient transfused 2 units of PRBC overnight * GI (Dr. Lowry) on board-->help appreciated * EGD (12/25/16): Malignant appearing gastric tumor on the anterior wall of the stomach and on the lesser curvature of the stomach-->biopsied * Perform an upper endoscopic ultrasound appointment to be scheduled. CT scan abdomen w contrast * f/u pathology * Hemoglobin improved to 8.3 * +occult blood 3. Hypokalemia * K+: 3.5 in ED on admission-->repleted * monitor BMP and Mg2+ and replete if necessary 4. Hypertension * Will resume home medication Losartan 100 mg po qdaily after EGD 5. Hyperlipidemia * Will resume home medication Atorvastatin 10 mg po qHS 6. Prophylactic Measures * Protonix 40 mg PO BID for GI ppx * Chemical anticoagulation held in light of symptomatic anemia * SCDs b/l
--- NOTE | 2016-12-27 10:23 | CARD ---
APPROVED REPORT EKG Measurement Heart [id number] <Conclusion> Normal sinus rhythm Normal ECG
--- NOTE | 2016-12-28 08:08 | CON ---
DATE: REASON FOR CONSULTATION: Severe anemia. HISTORY OF PRESENT ILLNESS: A 56-year-old female with history of breast cancer in 2001 was complaining of feeling dizziness, weakness, tiredness, almost passing out, also saw dark stool about 2 days prior to the admission. She denied any other symptoms, generalized weakness and was brought to the emergency room and found to have severe anemia. Already she had endoscopy done, which confirmed the gastric mass. I am called on consult for further evaluation and suggestions. PAST MEDICAL HISTORY: Significant for hypertension and carcinoma of the breast in 2001. PAST SURGICAL HISTORY: Right breast mastectomy, it can followed by radiation and chemotherapy, and tubal ligation in 1992. FAMILY HISTORY: Mother has asthma. ALLERGIES: No known drug allergies. SOCIAL HISTORY: She works as a receptionist secretary. She is a nonsmoker and no ethanol abuse. MEDICATIONS AT HOME: Losartan 100 mg once a day, iron supplement, atorvastatin 10 mg, and pantoprazole 40 mg. REVIEW OF SYSTEMS: No fever or chills. No nausea or vomiting. Does have melena. No dysuria or hematuria. No cough or sputum. Good appetite. No recent weight loss. PHYSICAL EXAMINATION: GENERAL: Awake, alert and oriented, quiet, pleasant, and not in acute distress. VITAL SIGNS: Temperature of 99, pulse of 89, respirations of 20, and blood pressure of 102/66. HEENT: Head is normocephalic and atraumatic. Eyes: Conjunctivae pink. Sclerae are white. Pupils are reactive to light. Ear, nose, and throat are within normal limits. LUNGS: Bilaterally good air entry. Clear to auscultation and percussion. HEART: S1 and S2 regular. No gallop. No murmur. ABDOMEN: Soft, nondistended, and nontender. No hepatosplenomegaly. CENTRAL NERVOUS SYSTEM: No gross, motor or sensory deficits. LYMPH NODE: No cervical, axillary or inguinal lymph nodes palpable. LABORATORY DATA: On admission, WBC of 11,300, hemoglobin of 6, hematocrit of 18.6, and platelet count of 362,000. Serum SMA-18 is essentially normal. IMPRESSION: 1. Severe anemia secondary to upper gastrointestinal bleeding. 2. Gastric mass rule out carcinoma of the stomach. 3. Leukocytosis. 4. Neutrophilia, which is resolved. Thank you for letting me participate in the care of this patient and I will follow up the patient with you. ADDENDUM: Once the biopsy is confirmed, we will follow up the patient due to further workup including PET scan. If the PET scan is negative, we can consider giving the neoadjuvant chemotherapy, which includes the 5-FU, leucovorin, oxaliplatin and Taxotere. Three cycles followed by surgery and then more chemotherapy. I discussed that at length with the patient and the daughter. The patient discussed with Dr. Kothari also and Dr. Lowry also. Bipin Limon MD cc: Derrick Wood MD
== END 2016-12-26 14:43 | disposition home or self-care (01) | DRG 375 ==
LOC: C.ER 12:53 → C.9E 15:02 → C.6T 18:31
PROVIDERS: ADMIT Hospitalist; ATTEND Hospitalist
PROC: 30233N1 Transfusion of Nonautologous Red Blood Cells into Peripheral Vein, Percutaneous Approach (ICD-10-PCS; 2016-12-24)
PROC: 0DB68ZX Excision of Stomach, Via Natural or Artificial Opening Endoscopic, Diagnostic (ICD-10-PCS; principal; 2016-12-25 08:43)
DX: C16.8 Malignant neoplasm of overlapping sites of stomach (principal); K92.2 Gastrointestinal hemorrhage, unspecified; K29.00 Acute gastritis without bleeding; K31.7 Polyp of stomach and duodenum; D50.9 Iron deficiency anemia, unspecified; E87.6 Hypokalemia; I10 Essential (primary) hypertension; D72.829 Elevated white blood cell count, unspecified; E78.5 Hyperlipidemia, unspecified; Z85.3 Personal history of malignant neoplasm of breast; Z90.11 Acquired absence of right breast and nipple; Z92.21 Personal history of antineoplastic chemotherapy; Z92.3 Personal history of irradiation